=== PATIENT | female | born 1985 | race Hispanic/Latino ===

== ENCOUNTER 2020-09-30 09:38 | Outpatient (CLI) | payer MEDICAID ==
--- NOTE | 2020-09-30 14:39 | Ultrasound Report ---
BILATERAL DIGITAL DIAGNOSTIC MAMMOGRAM WITH CAD , 09/30/2020 BILATERAL LIMITED BREAST ULTRASOUND CLINICAL INFORMATION / INDICATION: Bilateral palpable breast lumps for the past 3-6 months. N60.02 TECHNIQUE: Digital bilateral mammographic imaging was performed. Limited ultrasound was performed. Th is examination was interpreted with the benefit of Computer-Aided Detection (CAD) analysis. COMPARISON: None. This is the patient's first mammogram. FINDINGS: Breast Density: The breasts are extremely dense, which lowers the sensitivity of mammography. MAMMOGRAPHIC FINDINGS: No dominant mass, suspicious calcifications, or architectural distortion in ei ther breast. No mammographic finding is noted in either breast to account for the stated complaint of bilateral breast lumps. ULTRASOUND FINDINGS: Targeted ultrasound evaluation was performed of the area of interest. Right breast: Scattered fibrocystic changes noted throughout the right breast. There are several smal l simple cysts as well as benign-appearing hypoechoic nodules present in a benign pattern. The appear ance is most suggestive of combination of simple cyst and complicated cysts. I do not see any suspici ous mass. Left breast: As noted in the right breast, there are scattered fibrocystic changes noted throughout the breasts. A combination of small simple cysts and complicated cysts are noted. No concerning abnor mality is identified. IMPRESSION: No mammographic or sonographic evidence of malignancy. Diffuse bilateral fibrocystic stokes ge. Follow up recommendation: Follow-up as clinically warranted, given the patient's age of 35 years. BI-RADS Category 2: Benign. A "normal" or negative report should not discourage follow up or biopsy of a clinically significant f inding. A written summary of these findings will be mailed to the patient. The patient will be entered into a mammography reporting system which will generate a reminder letter for the patient's next appointmen t at the appropriate interval. According to the [employer], yearly mammograms are recommended starting at age 40 and continuing as long as a woman is in good health. Breast MRI is recommended for women with an gauri roximately 20-25% or greater lifetime risk of breast cancer, including women with a strong family his tory of breast or ovarian cancer and women who have been treated for Hodgkin's disease. Signer Name: Carolyn Alcocer MD Signed: 09/30/2020 2:35 PM Workstation Name: [id number]
== END 2020-09-30 09:39 | disposition home or self-care (01) ==
LOC: MAMMO 09:38
PROVIDERS: ATTEND Advanced Practice Midwife
DX: N60.11 Diffuse cystic mastopathy of right breast (principal); N60.12 Diffuse cystic mastopathy of left breast; N60.02 Solitary cyst of left breast
CPT/HCPCS: 77066